=== PATIENT | female | born 1965 | race Hispanic/Latino ===

== ENCOUNTER 2018-08-08 07:56 | Day surgery (SDC) | payer MEDICARE, MEDICAID ==
[2018-08-08 08:19] VITALS: BMI 29.2
[2018-08-08] MEDS ORDERED: Lactated Ringer's 500 ML IV ONE (08:22)
[2018-08-08] MEDS ORDERED: Propofol 10 mg/ml Inj (20 ML) ONE (09:40)
[2018-08-08 10:42] VITALS: BP 117/70; PULSE 65; RESP 13; TEMP 96.7; O2SAT 98
== END 2018-08-08 11:28 | disposition home or self-care (01) ==
LOC: H.ENDO 07:56
PROVIDERS: ATTEND Internal Medicine Gastroenterology
DX: K25.9 Gastric ulcer, unspecified as acute or chronic, without hemorrhage or perforation (principal); K29.50 Unspecified chronic gastritis without bleeding; B96.81 Helicobacter pylori [H. pylori] as the cause of diseases classified elsewhere; K44.9 Diaphragmatic hernia without obstruction or gangrene; K64.8 Other hemorrhoids; R19.5 Other fecal abnormalities
CPT/HCPCS: 43239; 45378; 88305; J2001; J2704; J7120